=== PATIENT | female | born 1990 | race Caucasian/White ===

== ENCOUNTER 2021-03-28 18:29 | Emergency (ER) | payer OTHER, MEDICAID ==
[~2021-03-28] VITALS: Ht 170.2 cm; Wt 74.8 kg
[2021-03-28] MEDS ORDERED: IBUPROFEN 800800 M1 PO (21:24)
[2021-03-28 21:41] VITALS: BP 128/65
== END 2021-03-28 21:41 | disposition home or self-care (01) ==
LOC: M.ERS 18:29
DX: M25.522 Pain in left elbow (principal); Z88.2 Allergy status to sulfonamides; W18.39XA Other fall on same level, initial encounter; Y93.02 Activity, running; Y92.89 Other specified places as the place of occurrence of the external cause; Y99.8 Other external cause status